=== PATIENT | female | born 1955 | race Two or more races ===

== ENCOUNTER 2018-03-20 15:09 | Outpatient (CLI) | payer OTHER ==
[~2018-03-20 15:09] MED LIST: BENICAR5 MG; PNEU16DI2
== END 2018-03-20 15:17 | disposition home or self-care (01) ==
LOC: RAD 15:09
DX: M25.561 Pain in right knee (principal); M25.562 Pain in left knee

== ENCOUNTER 2018-08-07 16:33 | Outpatient (CLI) | payer OTHER | END 2018-08-07 16:49 | disposition home or self-care (01) | LOC: EDBD 16:33 → RAD 16:33 | DX: R07.89 Other chest pain (principal) ==

== ENCOUNTER 2018-08-07 17:15 | Outpatient (CLI) | payer OTHER | END 2018-08-07 17:25 | disposition home or self-care (01) | LOC: LAB 17:15 → EDBD 17:15 → LAB 17:25 | DX: D68.8 Other specified coagulation defects (principal); N39.0 Urinary tract infection, site not specified; E78.2 Mixed hyperlipidemia ==

== ENCOUNTER 2018-08-08 13:18 | Outpatient (CLI) | payer OTHER | END 2018-08-08 15:29 | disposition home or self-care (01) | LOC: EKG 13:18 | DX: I10 Essential (primary) hypertension (principal) ==

== ENCOUNTER 2018-08-09 13:08 | Inpatient (IN) | payer OTHER ==
[~2018-08-09] VITALS: Ht 170.2 cm; Wt 89.8 kg
[2018-09-27] MEDS ORDERED: MULTIVITAMINS1 EAC9 PO (15:40)
[2018-09-27] MEDS ORDERED: OMEGA 3 1,0001 EACH PO (15:40)
[2018-09-27] MEDS ORDERED: CALCIUM500 M1 PO (15:41)
== END 2018-10-05 17:24 | DRG 470 ==
LOC: O/R 10-03 05:43 → SURH 10-03 05:43 → SURG 10-03 10:47 → SURH 10-03 13:00
PROVIDERS: ADMIT Orthopaedic Surgery
PROC: 0SRD0J9 Replacement of Left Knee Joint with Synthetic Substitute, Cemented, Open Approach (ICD-10-PCS; principal; 2018-10-03 13:00)
DX: M17.12 Unilateral primary osteoarthritis, left knee (principal); D62 Acute posthemorrhagic anemia; I10 Essential (primary) hypertension; K21.9 Gastro-esophageal reflux disease without esophagitis

== ENCOUNTER 2018-11-21 12:47 | Outpatient (CLI) | payer OTHER ==
[~2018-11-21 12:47] MED LIST changes: +CALCIUM500 M1 PO; +MULTIVITAMINS1 EAC9 PO; +OMEGA 3 1,0001 EACH PO
== END 2018-11-21 12:50 | disposition home or self-care (01) ==
LOC: RAD 12:47
DX: M25.561 Pain in right knee (principal); M25.562 Pain in left knee

== ENCOUNTER 2023-04-19 13:41 | Outpatient (CLI) | payer OTHER | END 2023-04-19 13:56 | disposition home or self-care (01) | LOC: MRI 13:41 | PROVIDERS: ATTEND Orthopaedic Surgery | DX: M54.50 Low back pain, unspecified (principal); Z88.1 Allergy status to other antibiotic agents | CPT/HCPCS: 72148 ==